=== PATIENT | female | born 1980 | race Caucasian/White ===

== ENCOUNTER 2016-06-09 08:03 | Inpatient (IN) | payer OTHER ==
--- NOTE | ~2016-06-09 | PN ---
Unit #: [id number] #: [id number] Patient: DIANN FLOREZ [id number] [facility] [address] [place] [address] [id number] I MR#: [id number] NAME: DIANN FLOREZ ROOM: P254 Age: 36 Sex: F Admission Date: 06/09/2016 : 1980 Attending Physician: Horacio Lomeli M.D. Admitting Physician: Horacio Lomeli M.D. Primary Care Physician: Generic Doctor Not In System [facility] PROGRESS NOTES DATE 06/11/2016 DISCUSSION The patient is in a bit brighter spirits today but continues to endorse positive suicidal ideation. She is tolerating medications without complaint and offers no other complaints. She (1) __ today regarding post-discharge treatment options. Dictated by... Horacio Lomeli M.D. CB/judit TD: 06/11/2016 13:04 JOB #: [id number] [facility] PROGRESS NOTES Page 1 of 1 X Horacio Lomeli MD PROGRESS NOTE
--- NOTE | ~2016-06-09 | DS ---
Unit #: [id number] #: [id number] Patient: DIANN FLOREZ [id number] [facility] [address] [place] [address] [id number] MR#: [id number] NAME: DIANN FOLREZ ROOM: P254 Age: 36 Sex: F Admission Date: 06/09/2016 : 1980 Discharge Date: 06/13/2016 Attending Physician: Horacio Lomeli M.D. Primary Care Physician: Generic Doctor Not In System DISCHARGE SUMMARY REASON FOR ADMISSION The patient is a 36-year-old white female, admitted to the hospital with increasing suicidal ideation and depression. HOSPITAL COURSE The patient was admitted to the [facility] unit and placed on suicide precautions. She was continued on previously prescribed Prozac and Abilify 2 mg daily was added. The patient participated actively within the therapeutic milieu and showed genuine progress during her brief stay in the hospital. By 06/13/2016, she was in bright spirits and agreeable to plan for followup in the intensive outpatient program. As per her request, discharge was ordered. FINAL DIAGNOSES Major depressive disorder, recurrent, moderate; obesity; hypothyroidism; vitamin B deficiency. DISPOSITION ON DISCHARGE The patient is discharged on the following medications; Prozac 80 mg daily for depression, Abilify 2 mg daily for depression, vitamin D 50,000 units weekly for vitamin D supplementation, Desyrel 50 mg at h.s. p.r.n. insomnia, Synthroid 0.05 mg daily for thyroid supplementation. DISCHARGE INSTRUCTIONS No dietary or physical restrictions were placed upon the patient at the time of discharge. FOLLOWUP She will follow in the intensive outpatient program provided by this facility and through the auspices of [facility] mental health resources. PROGNOSIS Her prognosis is considered good. ADDENDUM The patient is informed of the risks and benefits of medications ordered including the possible risks of tardive dyskinesia with long-term use of antipsychotic medications such as Abilify. She is likewise apprised of FDA mandated warnings regarding the effects of atypical antipsychotics on the metabolism of lipids and glucose. Dictated by... Unit #: [id number] #: [id number] Patient: DIANN FLOREZ Horacio Lomeli M.D. CB/sacha TD: 06/13/2016 22:50 JOB #: [id number] DISCHARGE SUMMARY Page 1 of 1 X Horacio Lomeli MD DISCHARGE SUMMARY
--- NOTE | ~2016-06-09 | PN ---
Unit #: [id number] #: [id number] Patient: DIANN FLOREZ [id number] [facility] [address] [place] [address] [id number] MR#: [id number] NAME: DIANN FLOREZ ROOM: P254 Age: 36 Sex: F Admission Date: 06/09/2016 : 1980 Attending Physician: Horacio Lomeli M.D. Admitting Physician: Horacio Lomeli M.D. Primary Care Physician: Generic Doctor Not In System [facility] PROGRESS NOTES DATE 06/12/2016 DISCUSSION The patient seems to be in brighter spirits today and is reporting reduction in suicidal ideation. Should she sustain progress discharge could take place as early as tomorrow. Dictated by... Horacio Lomeli M.D. CB/candice TD: 06/12/2016 12:59 JOB #: [id number] [facility] PROGRESS NOTES Page 1 of 1 X Horacio Lomeli MD X PROGRESS NOTE
--- NOTE | ~2016-06-09 | HP ---
Unit #: [id number] #: [id number] Patient: DIANN FLOREZ [id number] [place] [address] [id number] I MR#: [id number] NAME: DIANN FLOREZ ROOM: P254 Age: 36 Sex: F Admission Date: 06/09/2016 : 1980 Attending Physician: Horacio Lomeli M.D. Admitting Physician: Horacio Lomeli M.D. Primary Care Physician: Generic Doctor Not In System HISTORY AND PHYSICAL HISTORY OF PRESENT ILLNESS Diann is a 36-year-old female admitted to [address] [place] [address] with depression after verbalizing wanting to hurt herself. PAST MEDICAL HISTORY 1. Obesity. 2. Hypothyroidism. PAST SURGICAL HISTORY C section. ALLERGIES No known drug allergies. SOCIAL HISTORY She does not smoke, drinks alcohol on occasion, and denies illicit drug use. FAMILY HISTORY Medically noncontributory. REVIEW OF SYSTEMS CONSTITUTIONAL: No fever or chills. HEENT: Denies any sore throat, ear pain or runny nose. CARDIOVASCULAR: Denies chest pain, irregular heart rhythm or palpitations. CHEST: Denies shortness of breath or cough. No hemoptysis. GASTROINTESTINAL: Denies nausea, vomiting, diarrhea or chronic constipation. ENDOCRINE: Denies history of increased thirst or urination. No recent significant weight loss or gain. GENITOURINARY: Denies dysuria, frequency, or hematuria. SKIN: Denies any rashes. HEMATOLOGIC: Denies history of increased bleeding or bruising. MUSCULOSKELETAL: Denies any hot, swollen joints. No generalized muscle pain. NEUROLOGIC: Denies problems with vision or speech. No frequent, severe headaches. No numbness, tingling or weakness in any extremities. Denies loss of bladder or bowel control. CURRENT MEDICATIONS 1. Vitamin D 50,000 units every week. 2. Synthroid 0.05 mg every day. 3. PROzac 80 mg every day. Unit #: [id number] #: [id number] Patient: DIANN FLOREZ 4. Desyrel 50 mg q.h.s. p.r.n. 5. Milk of magnesia p.r.n. 6. Maalox p.r.n. 7. Tylenol p.r.n. PHYSICAL EXAMINATION GENERAL: Alert, well nourished, and in no apparent distress. VITAL SIGNS: Blood pressure 122/86, heart rate 96, respirations 16, and temperature 98.6. SKIN: Warm and dry without rash or lesion. HEENT: Normocephalic. TMs not viewed. Oral and nasal passages clear. Conjunctivae clear. PERRLA. EOMs intact. NECK: Supple without lymphadenopathy or thyromegaly. HEART: Regular rate and rhythm without murmur. LUNGS: Clear. ABDOMEN: Soft, nontender. : Not done. EXTREMITIES: No evidence of cyanosis, clubbing or edema. Moves all without focal deficit. NEUROLOGICAL: Grossly within normal limits. Cranial Nerves: II: Visual butt are intact. III, IV AND : Extraocular movements are intact. Pupils are equal, round and reactive to light. V: Facial sensation is grossly normal. VII: Facial movements and expression are normal. VIII: Auditory acuity grossly intact. IX, X: Uvula is midline. Phonation is normal. XI: Patient shrugs shoulders and turns head normally. XII: Tongue protrudes in the midline. Sensory and Motor Function: Sensory and motor sensation is grossly normal. Motor: moves all extremities well. Coordination: Gait is normal. Deep Tendon Reflexes: Intact. IMPRESSION Psychiatric admission. RECOMMENDATIONS PSYCHIATRIC: Per psychiatrist. MEDICAL: I see no contraindication to participating in facility's activities. MEDICAL PROGNOSIS Good. MEDICAL CONDITION Stable. Dictated by... Ольга Lock P.A.-C. for Elmo Jin/ray TD: 06/10/2016 06:40 JOB #: [id number] Unit #: [id number] #: [id number] Patient: IDANN FLOREZ HISTORY AND PHYSICAL Page 1 of 1 X Ольга Lock HISTORY AND PHYSICAL
--- NOTE | ~2016-06-09 | PA ---
Unit #: [id number] #: [id number] Patient: DIANN FLOREZ [id number] [facility] [address] [place] [address] [id number] Ray MR#: [id number] NAME: DIANN FLOREZ ROOM: P254 Age: 36 Sex: F Admission Date: 06/09/2016 : 1980 Date of Assessment: 06/10/2016 Attending Physician: Horacio Lomeli M.D. Admitting Physician: Horacio Lomeli M.D. Primary Care Physician: Generic Doctor Not In System PSYCHIATRIC ASSESSMENT IDENTIFYING INFORMATION The patient is a 36-year-old white female who is admitted to the [address] [place] [address] unit with increasing suicidal ideation and depression. INFORMANT(S) Patient. RELIABILITY Good. CHIEF COMPLAINT My depression is worse. HISTORY OF PRESENT ILLNESS The patient is a 36-year-old white female who reports a history of psychiatric treatment dating to the age of 18. She has a history of multiple previous psychiatric hospitalizations beginning at the age of 18 and the last of which occurred at the age of 29. The patient reports that she has been having increasing depression related to the of her aunt on April 25. Also, she recently lost a beloved pet. 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 She reports no use of alcohol, tobacco or street drugs. She denies recent changes in appetite but does complain of variable sleep. She has reported history of positive response to Abilify but states she had to stop the medication "when I lost my insurance." The patient completed some college at [employer] but is now enrolled at [employer] where she is studying sociology. She continues to endorse positive suicidal ideation when seen today but seems much brighter. PAST PSYCHIATRIC HISTORY As above. FAMILY HISTORY The patient reports that both of her parents were alcoholics. SOCIAL HISTORY The patient lives with her roommate. Her educational, occupational and substance use history are described previously. MEDICAL HISTORY The patient suffers from hypothyroidism and obesity. Unit #: [id number] #: [id number] Patient: DIANN FLOREZ MEDICATION HISTORY 1. Fluoxetine. 2. Vitamin D2. 3. Levothyroxine. ALLERGIES None reported. MENTAL STATUS EXAM At this time, reveals the patient to be an obese white female appearing her stated age. She is in no apparent physical distress at the time of examination. She is awake, alert, oriented in all spheres. Her mood is mildly dysphoric. Her affect congruent. Speech is generally relevant and coherent. There are no gross deficits in memory or cognition noted. Intelligence is judged to be in the average range based on fund of knowledge. The patient is cooperative throughout the interview. She is currently endorsing positive suicidal ideation. She denies homicidal ideation. She denies any psychotic symptoms. Her judgement and insight appear to be intact. ASSETS AND LIABILITIES Patient's assets, motivation for change. Liabilities, none noted. ADMITTING DIAGNOSES 1. Major depressive disorder, recurrent, moderate. 2. Obesity. 3. Hypothyroidism. 4. Vitamin B deficiency. PSYCHIATRIC PLAN/TREATMENT GOALS The patient remains hospitalized for safety and stabilization. We will continue previously prescribed Prozac and will add Abilify 2 mg daily given the patient history of positive response to this medication. She will participate in appropriate aponte and milieu activities and looks to be a good candidate for participation in the intensive outpatient program. Dictated by... Horacio Lomeli M.D. RUFINO/naomi TD: 06/10/2016 15:05 JOB #: [id number] PSYCHIATRIC ASSESSMENT Page 1 of 1 X Horacio Lomeli MD X PSYCHIATRIC ASSESSMENT
[2016-06-10 12:39] LABS: BASOPHIL% 0.4 % (0-2.5); EOSINOPHIL# 0.4 X10e3 (0-0.7); EOSINOPHIL% 5.2 % (0.0-7.0); HEMATOCRIT 37.3 % (35.0-45.0); HEMOGLOBIN 12.1 gm/dL (12.0-16.0); LYMPHOCYTE# 1.9 X10e3 (1.0-3.5); LYMPHOCYTE% 23.2 % (17.0-45.0); MEAN CELL VOLUME 88.6 FL (83-96); MEAN CORPUSCULAR HEMOGLOBIN 28.7 PG (28-34); MEAN CORPUSCULAR HGB CONC 32.4 g/dL (30-36); MEAN PLATELET VOLUME 9.2 FL (6.5-11.5); MONOCYTE# 0.5 X10e3 (0-1.0); MONOCYTE% 6.3 % (3.0-12.0); NEUTROPHIL# 5.4 X10e3 (1.5-7.1); NEUTROPHIL% 64.9 % (40-75); PLATELET COUNT 294 X10e3 (140-420); RED BLOOD COUNT 4.21 X10e (3.90-5.30); RED CELL DISTRIBUTION WIDTH 14.5 % (11.0-15.5); WHITE BLOOD COUNT 8.3 X10e3 (4.0-10.5)
[2016-06-10 12:44] LABS: DIFF IND NO
[2016-06-10 12:54] LABS: URINE APPEARANCE CLEAR; URINE BILIRUBIN NEG (NEG); URINE BLOOD NEG (NEG); URINE COLOR YELLOW; URINE GLUCOSE NEG (NEG); URINE KETONE NEG (NEG); URINE LEUKOCYTE ESTERASE NEG (NEG); URINE NITRATE NEG (NEG); URINE PH 5.5 (5-8); URINE PROTEIN NEG (NEG); URINE SPECIFIC GRAVITY 1.024 (1.003-1.035); URINE UROBILINOGEN 0.2 MG/DL (NEG)
[2016-06-10 13:05] LABS: ALBUMIN SERUM 3.9 g/dL (3.5-5.0); BILIRUBIN,TOTAL 0.4 mg/dL (0.2-2.0); BUN/CREATININE RATIO 14.28; CALCIUM SERUM 9.5 mg/dL (8.4-10.2); CREATININE SERUM 0.7 mg/dL (0.6-1.4); POTASSIUM 4.2 mmol/L (3.5-5.1); PROTEIN TOTAL SERUM 6.5 g/dL (6.0-8.3)
[2016-06-10 13:17] LABS: AMPHETAMINE NEG (NEG); BARBITURATES NEG (NEG); BENZODIAZEPINES NEG (NEG); COCAINE NEG (NEG); MARIJUANA NEG (NEG); OPIATES NEG (NEG); TRICYCLIC ANTIDEPRESSANTS NEG (NEG); U METHADONE NEG (NEG)
== END 2016-06-13 15:00 | disposition home or self-care (01) | DRG 885 ==
LOC: POF 08:03 → P2L 11:15
PROVIDERS: Specialist
DX: F33.1 Major depressive disorder, recurrent, moderate (principal); R45.851 Suicidal ideations; E66.9 Obesity, unspecified; E03.9 Hypothyroidism, unspecified; Z81.1 Family history of alcohol abuse and dependence; E53.9 Vitamin B deficiency, unspecified
CPT/HCPCS: 80053; 80307; 81003; 85025

== ENCOUNTER 2016-07-31 22:03 | Inpatient (IN) | payer OTHER ==
--- NOTE | ~2016-07-31 | PA ---
Unit #: [id number] #: [id number] Patient: DIANN FLOREZ [id number] [facility] [address] [place] [address] [id number] MR#: [id number] NAME: DIANN FLOREZ ROOM: [facility] Age: 36 Sex: F Admission Date: 08/01/2016 : 1980 Date of Assessment: 08/01/2016 Attending Physician: Horacio Lomeli M.D. Admitting Physician: Horacio Lomeli M.D. Primary Care Physician: Primary Care Physician No PSYCHIATRIC ASSESSMENT IDENTIFYING INFORMATION The patient is a 36-year-old white female admitted to the [facility] unit with recurrent suicidal ideation. INFORMANT(S) Patient. RELIABILITY Fair. CHIEF COMPLAINT Been really depressed. HISTORY OF PRESENT ILLNESS The patient is a 36-year-old single white female last discharged from this facility in May of this year. She has a history of major depressive disorder as well as some borderline personality traits. She is readmitted reporting worsening suicidal ideation with plan to cut herself with a box spring frame builder. The patient reports any specific stressor but does report that she recently felt as though her therapist was not sufficiently responsive to some unresolved emotions. The patient is currently prescribed Abilify and Prozac and had done fairly well on these medications earlier this year. She had participated in the intensive outpatient program provided by this facility. For more complete history of present illness, please refer to previous dictated notes. PAST PSYCHIATRIC HISTORY Reviewed, no changes. FAMILY HISTORY/SOCIAL HISTORY Reviewed, no changes. MEDICAL HISTORY No changes. MEDICATION HISTORY 1. Synthroid. 2. Abilify. 3. Prozac. 4. Trazodone. 5. Vitamin D. ALLERGIES Unit #: [id number] #: [id number] Patient: DIANN FLOREZ None. MENTAL STATUS EXAM At this time, reveals the patient to be an obese somewhat masculine appearing white female appearing her stated age. She is in no apparent physical distress at time of examination. She is awake, alert, oriented in all spheres. Her mood is dysphoric. Her affect constricted. Speech is generally relevant and coherent. There are no gross deficits in memory or cognition noted. Intelligence is judged to be in the average range based on fund of knowledge. The patient is cooperative throughout the interview. She is currently endorsing positive suicidal ideation. She denies homicidal ideation. She denies any psychotic symptoms. Her judgement and insight appear to be reasonably intact. ASSETS AND LIABILITIES Patient's assets, motivation for change. Liabilities, lack of resources. ADMITTING DIAGNOSES 1. Major depressive disorder, recurrent, moderate. 2. Borderline personality traits versus disorder. 3. Obesity. 4. Hypothyroidism. PSYCHIATRIC PLAN/TREATMENT GOALS The patient remains hospitalized for stabilization. We will transfer her to the [address] [place] [address] unit and will continue previously prescribed medications, increasing Abilify to 5 mg daily. DISCHARGE PLANNING Followup to take place in the intensive outpatient program provided by this facility. ESTIMATED LENGTH OF STAY Five to seven days. Dictated by... Horacio Lomeli M.D. RUFINO/naomi TD: 08/01/2016 18:23 JOB #: [id number] PSYCHIATRIC ASSESSMENT Page 1 of 1 X Horacio Lomeli MD X PSYCHIATRIC ASSESSMENT
--- NOTE | ~2016-07-31 | PN ---
Unit #: [id number] #: [id number] Patient: DIANN FLOREZ [id number] [facility] [address] [place] [address] [id number] I MR#: [id number] NAME: DIANN FLOREZ ROOM: 61 Age: 36 Sex: F Admission Date: 08/01/2016 : 1980 Attending Physician: Horacio Lomeli M.D. Admitting Physician: Horacio Lomeli M.D. Primary Care Physician: Primary Care Physician Landy GRIDER PROGRESS NOTES DATE 08/02/2016 DISCUSSION The patient is now a patient on the 2 [facility] unit and is active within the therapeutic milieu. She continues to endorse positive suicidal ideation but did tolerate the increased dose of Abilify without complaint. Dictated by... Horacio Lomeli M.D. CB/naomi TD: 08/02/2016 12:09 JOB #: [id number] [facility] PROGRESS NOTES Page 1 of 1 X Horacio Lomeli MD X PROGRESS NOTE
--- NOTE | ~2016-07-31 | PN ---
Unit #: [id number] #: [id number] Patient: DIANN FLOREZ [id number] [facility] [address] [place] [address] [id number] I MR#: [id number] NAME: DIANN FLOREZ ROOM: 61 Age: 36 Sex: F Admission Date: 08/01/2016 : 1980 Attending Physician: Horacio Lomeli M.D. Admitting Physician: Horacio Lomeli M.D. Primary Care Physician: Primary Care Physician Landy GRIDER PROGRESS NOTES DATE 08/03/2016 DISCUSSION The patient is in bed resting comfortably this morning. Staff reports no management issues, but reports that he continues to endorse sad mood and suicidal thinking. Dictated by... Horacio Lomeli M.D. CB/taiwo TD: 08/03/2016 13:30 JOB #: [id number] [facility] PROGRESS NOTES Page 1 of 1 X Horacio Lomeli MD X PROGRESS NOTE
--- NOTE | ~2016-07-31 | DS ---
Unit #: [id number] #: [id number] Patient: DIANN FLOREZ [id number] [facility] [address] [place] [address] [id number] I MR#: [id number] NAME: DIANN FLOREZ ROOM: [facility] Age: 36 Sex: F Admission Date: 08/01/2016 : 1980 Discharge Date: 08/04/2016 Attending Physician: Horacio Lomeli M.D. Primary Care Physician: Primary Care Physician No DISCHARGE SUMMARY REASON FOR ADMISSION The patient is a 36-year-old female, admitted with recurrence of suicidal ideation. HOSPITAL COURSE The patient was admitted to the [facility] unit and placed on suicide precautions. She was continued on previously prescribed medications and Abilify was increased from 2 to 5 mg nightly. The patient tolerated this medication change without complaint and showed slow, but steady improvement. She was active within the therapeutic milieu. By 08/04/2016, the patient requested discharge and it was in agreement with plan for followup through the auspices of the intensive outpatient program. Discharge was ordered. FINAL DIAGNOSES Major depressive disorder, recurrent, moderate; borderline personality traits; vitamin D deficiency; hypothyroidism. DISPOSITION ON DISCHARGE The patient is discharged on the following medications: Synthroid 0.05 mg daily for thyroid supplementation, Desyrel 100 mg at h.s. p.r.n. insomnia, vitamin D 50,000 units weekly for vitamin D supplementations, Prozac 80 mg daily for depression, and Abilify 5 mg daily for depression. DISCHARGE INSTRUCTIONS No dietary or physical restrictions were placed upon the patient at the time of discharge. FOLLOWUP We will follow in the intensive outpatient program provided by this facility. PROGNOSIS Her prognosis is considered fair. Dictated by... Horacio Lomeli M.D. CB/sacha TD: 08/04/2016 13:25 JOB #: [id number] Unit #: [id number] #: [id number] Patient: DIANN FLOREZ DISCHARGE SUMMARY Page 1 of 1 X Horacio Lomeli MD X DISCHARGE SUMMARY
--- NOTE | ~2016-07-31 | HP ---
Unit #: [id number] #: [id number] Patient: DIANN FLOREZ [id number] [place] [address] [id number] I MR#: [id number] NAME: DIANN FLOREZ ROOM: 61 Age: 36 Sex: F Admission Date: 08/01/2016 : 1980 Attending Physician: Horacio Lomeli M.D. Admitting Physician: Horacio Lomeli M.D. Primary Care Physician: Primary Care Physician No HISTORY AND PHYSICAL HISTORY OF PRESENT ILLNESS Diann is a 36 year old female admitted to [address] [place] [address] with depression and verbalizing wanting to hurt herself. PAST MEDICAL HISTORY 1. Morbid obesity. 2. Hypothyroidism. PAST SURGICAL HISTORY Right knee. ALLERGIES No known drug allergies. SOCIAL HISTORY She does not smoke. Drinks alcohol rarely. Denies illicit drug use. FAMILY HISTORY Medically noncontributory. REVIEW OF SYSTEMS CONSTITUTIONAL: No fever or chills. HEENT: Denies any sore throat, ear pain or runny nose. CARDIOVASCULAR: Denies chest pain, irregular heart rhythm or palpitations. CHEST: Denies shortness of breath or cough. No hemoptysis. GASTROINTESTINAL: Denies nausea, vomiting, diarrhea or chronic constipation. ENDOCRINE: Denies history of increased thirst or urination. No recent significant weight loss or gain. GENITOURINARY: Denies dysuria, frequency, or hematuria. SKIN: Denies any rashes. HEMATOLOGIC: Denies history of increased bleeding or bruising. MUSCULOSKELETAL: Denies any hot, swollen joints. No generalized muscle pain. NEUROLOGIC: Denies problems with vision or speech. No frequent, severe headaches. No numbness, tingling or weakness in any extremities. Denies loss of bladder or bowel control. CURRENT MEDICATIONS 1. Prozac 80 mg q.h.s. 2. Desyrel 100 mg q.h.s. 3. Abilify 5 mg q.a.m. 4. Synthroid 0.05 mg q.a.m. Unit #: [id number] #: [id number] Patient: DIANN FLOREZ 5. Milk of Magnesia p.r.n. 6. Maalox p.r.n. 7. Tylenol p.r.n. PHYSICAL EXAMINATION GENERAL: Alert, morbidly obese, in no apparent distress. VITAL SIGNS: Blood pressure 120/84, heart rate 82, respirations 16, temperature 98.6. WEIGHT: 242. HEIGHT: 5 feet 7 inches. SKIN: Warm and dry without rash or lesion. HEENT: Normocephalic. TMs not viewed. Oral and nasal passages clear. Conjunctivae clear. PERRLA. EOMs intact. NECK: Supple without lymphadenopathy or thyromegaly. HEART: Regular rate and rhythm without murmur. LUNGS: Clear. ABDOMEN: Soft, nontender. : Not done. EXTREMITIES: No evidence of cyanosis, clubbing or edema. Moves all without focal deficit. NEUROLOGICAL: Grossly within normal limits. Cranial Nerves: II: Visual butt are intact. III, IV AND : Extraocular movements are intact. Pupils are equal, round and reactive to light. V: Facial sensation is grossly normal. VII: Facial movements and expression are normal. VIII: Auditory acuity grossly intact. IX, X: Uvula is midline. Phonation is normal. XI: Patient shrugs shoulders and turns head normally. XII: Tongue protrudes in the midline. Sensory and Motor Function: Sensory and motor sensation is grossly normal. Motor: moves all extremities well. Coordination: Gait is normal. Deep Tendon Reflexes: Intact. IMPRESSION Psychiatric admission. RECOMMENDATIONS PSYCHIATRIC: Per psychiatrist. MEDICAL: See no contraindication to participate in facility's activities. MEDICAL PROGNOSIS Good. MEDICAL CONDITION Stable. Dictated by... Ольга Lock P.A.-C. for Elmo Jin/naomi TD: 08/01/2016 21:19 JOB #: [id number] Unit #: [id number] #: [id number] Patient: DIANN FLOREZ HISTORY AND PHYSICAL Page 1 of 1 X Ольга Lock HISTORY AND PHYSICAL
[2016-08-01 09:52] LABS: BASOPHIL% 0.3 % (0-2.5); EOSINOPHIL# 0.4 X10e3 (0-0.7); EOSINOPHIL% 3.4 % (0.0-7.0); HEMATOCRIT 35.7 % (35.0-45.0); HEMOGLOBIN 11.6 gm/dL (12.0-16.0); LYMPHOCYTE# 3.2 X10e3 (1.0-3.5); LYMPHOCYTE% 25.9 % (17.0-45.0); MEAN CELL VOLUME 89.4 FL (83-96); MEAN CORPUSCULAR HEMOGLOBIN 28.9 PG (28-34); MEAN CORPUSCULAR HGB CONC 32.4 g/dL (30-36); MEAN PLATELET VOLUME 9.6 FL (6.5-11.5); MONOCYTE# 0.7 X10e3 (0-1.0); MONOCYTE% 5.5 % (3.0-12.0); NEUTROPHIL% 64.9 % (40-75); PLATELET COUNT 308 X10e3 (140-420); RED BLOOD COUNT 3.99 X10e (3.90-5.30); RED CELL DISTRIBUTION WIDTH 14.5 % (11.0-15.5); WHITE BLOOD COUNT 12.4 X10e3 (4.0-10.5)
[2016-08-01 09:55] LABS: ALBUMIN SERUM 3.8 g/dL (3.5-5.0); BILIRUBIN,TOTAL 0.5 mg/dL (0.2-2.0); BUN/CREATININE RATIO 14.28; CALCIUM SERUM 8.8 mg/dL (8.4-10.2); CREATININE SERUM 0.7 mg/dL (0.6-1.4); POTASSIUM 4.3 mmol/L (3.5-5.1); PROTEIN TOTAL SERUM 6.2 g/dL (6.0-8.3)
[2016-08-01 09:58] LABS: DIFF IND NO
[2016-08-03 12:59] LABS: URINE APPEARANCE TURBID; URINE BILIRUBIN NEG (NEG); URINE BLOOD NEG (NEG); URINE COLOR YELLOW; URINE GLUCOSE NEG (NEG); URINE KETONE NEG (NEG); URINE LEUKOCYTE ESTERASE NEG (NEG); URINE NITRATE NEG (NEG); URINE PROTEIN NEG (NEG); URINE SPECIFIC GRAVITY 1.024 (1.003-1.035)
[2016-08-03 13:31] LABS: AMPHETAMINE NEG (NEG); BARBITURATES NEG (NEG); BENZODIAZEPINES NEG (NEG); COCAINE NEG (NEG); MARIJUANA NEG (NEG); OPIATES NEG (NEG); TRICYCLIC ANTIDEPRESSANTS NEG (NEG); U METHADONE NEG (NEG)
== END 2016-08-04 15:25 | disposition home or self-care (01) | DRG 885 ==
LOC: P2L 08-01 01:01 → P1E 08-01 01:01 → P2L 08-01 18:44 → POF 08-01 23:20 → P2L 08-01 23:22
PROVIDERS: Specialist
DX: F33.1 Major depressive disorder, recurrent, moderate (principal); R45.851 Suicidal ideations; F60.3 Borderline personality disorder; E66.9 Obesity, unspecified; E03.9 Hypothyroidism, unspecified; E55.9 Vitamin D deficiency, unspecified; Z68.37 Body mass index [BMI] 37.0-37.9, adult
CPT/HCPCS: 80053; 80307; 81003; 85025